=== PATIENT | female | born 1975 | race Caucasian/White ===

== ENCOUNTER 2020-12-17 10:45 | Emergency (ER) | payer OTHER ==
[~2020-12-17] VITALS: Ht 162.6 cm; Wt 79.4 kg
[2020-12-17 11:36] LABS: ABSOLUTE NEUTROPHILS 2.7 thou/uL (1.4-8.2); BASOPHILS 0.7 % (0.0-2.0); EOSINOPHILS 0.8 % (0.0-3.0); HEMATOCRIT 25.7 % (37.0-47.0); HEMOGLOBIN 7.7 gm/dL (12.0-15.0); LYMPHOCYTES 31.3 % (24.0-44.0); MCH 16.9 pg (26.0-34.0); MCV 56.1 fL (80.0-100.0); MONOCYTES 8.2 % (1.0-8.0); PLATELET COUNT 306 thou/uL (150-400); RBC 4.57 mil/uL (4.20-5.00); RDW 21.5 % (10.5-14.5); WBC 4.6 thou/uL (4.0-11.0)
[2020-12-17 11:45] LABS: CALCIUM 8.5 mg/dL (8.5-10.1); CREATININE 0.5 mg/dL (0.6-1.0); POTASSIUM 3.3 mmol/L (3.5-5.1)
[2020-12-17 11:53] LABS: ALBUMIN 3.5 g/dL (3.4-5.0); TOTAL BILIRUBIN 0.2 mg/dL (0.2-1.0); TOTAL PROTEIN 7.1 g/dL (6.4-8.2)
[2020-12-17 12:09] LABS: ANISOCYTOSIS 2+; HYPOCHROMASIA 2+; MICROCYTES 2+; OVALOCYTES 1+; PLATELET ESTIMATE NORMAL
[2020-12-17] MEDS ORDERED: IRON325 PO (14:19)
[2020-12-17 14:38] VITALS: BP 124/64
== END 2020-12-17 15:05 | disposition home or self-care (01) ==
LOC: ER 10:45
PROVIDERS: Emergency Medicine
DX: D64.9 Anemia, unspecified (principal); R51.9 Headache, unspecified; E63.8 Other specified nutritional deficiencies; R10.13 Epigastric pain; R10.30 Lower abdominal pain, unspecified